=== PATIENT | female | born 1965 | race Caucasian/White ===

== ENCOUNTER 2018-02-24 08:30 | Inpatient (IN) | payer OTHER ==
[~2018-02-24] VITALS: Ht 175.3 cm; Wt 113.4 kg
[2018-02-24] MEDS ORDERED: CATAFLAN PO (13:15)
[2018-02-24] MEDS ORDERED: ATENOLOL25 MG PO (13:15)
[2018-04-03] MEDS ORDERED: DUI500 PO (08:33)
[2018-04-03] MEDS ORDERED: XARELTO10 MG PO (08:33)
[2018-04-03] MEDS ORDERED: PERCOCET 5-3251 EACH PO (08:33)
== END 2018-04-03 13:14 | DRG 470 ==
LOC: SURH 03-03 08:30 → SURG 03-31 06:26 → O/R 03-31 06:26 → SURH 03-31 08:30 → SURG 03-31 16:13
PROVIDERS: Orthopaedic Surgery
PROC: 0QND0ZZ Release Right Patella, Open Approach (ICD-10-PCS; 2018-03-31)
PROC: 0SRC0J9 Replacement of Right Knee Joint with Synthetic Substitute, Cemented, Open Approach (ICD-10-PCS; principal; 2018-03-31 13:00)
DX: M17.11 Unilateral primary osteoarthritis, right knee (principal); M80.00XA Age-related osteoporosis with current pathological fracture, unspecified site, initial encounter for fracture; M22.11 Recurrent subluxation of patella, right knee; E66.01 Morbid (severe) obesity due to excess calories; M85.461 Solitary bone cyst, right tibia and fibula; S86.011A Strain of right Achilles tendon, initial encounter; I10 Essential (primary) hypertension

== ENCOUNTER → 2018-02-24 18:01 | Outpatient (CLI) | payer OTHER ==
[~2018-02-24 18:01] MED LIST: ATENOLOL25 MG PO; CATAFLAN PO
== END | disposition home or self-care (01) ==
LOC: LAB 18:01
DX: D68.8 Other specified coagulation defects (principal)

== ENCOUNTER 2018-03-16 11:36 | Outpatient (CLI) | payer OTHER | END 2018-03-16 11:40 | disposition home or self-care (01) | LOC: LAB 11:36 | DX: D68.61 Antiphospholipid syndrome (principal); D68.62 Lupus anticoagulant syndrome; D68.8 Other specified coagulation defects; D68.32 Hemorrhagic disorder due to extrinsic circulating anticoagulants; M17.11 Unilateral primary osteoarthritis, right knee; D50.8 Other iron deficiency anemias; D51.8 Other vitamin B12 deficiency anemias; I10 Essential (primary) hypertension ==

== ENCOUNTER 2018-11-23 11:36 | Outpatient (CLI) | payer OTHER ==
[~2018-11-23 11:36] MED LIST changes: +DUI500 PO; +PERCOCET 5-3251 EACH PO; +XARELTO10 MG PO
== END 2018-11-23 12:16 | disposition home or self-care (01) ==
LOC: LAB 11:36
DX: D68.61 Antiphospholipid syndrome (principal); D68.62 Lupus anticoagulant syndrome; D68.8 Other specified coagulation defects; M17.11 Unilateral primary osteoarthritis, right knee; D50.8 Other iron deficiency anemias; D51.8 Other vitamin B12 deficiency anemias

== ENCOUNTER 2021-11-28 07:23 | Outpatient (CLI) | payer OTHER | END 2021-11-28 07:34 | disposition home or self-care (01) | LOC: RX STUDY 07:23 | PROVIDERS: ATTEND Internal Medicine Gastroenterology | DX: K56.50 Intestinal adhesions [bands], unspecified as to partial versus complete obstruction (principal); C18.9 Malignant neoplasm of colon, unspecified; K59.09 Other constipation ==